=== PATIENT | female | born 1955 | race Caucasian/White ===

== ENCOUNTER 2019-03-12 20:40 | Emergency (ER) | payer MEDICARE, OTHER ==
[~2019-03-12] VITALS: Ht 167.6 cm; Wt 50.8 kg
--- NOTE | 2019-03-12 21:21 | NUR ---
PT TRANSPORTED TO RADIOLOGY FOR CT.
[2019-03-12] MEDS ORDERED: DIAZEPAM 10 MG TABLET PO ONE (21:30)
[2019-03-12] MEDS ORDERED: DIAZEPAM 5 MG TABLET ONE (21:50)
--- NOTE | 2019-03-12 22:12 | NUR ---
Patient discharged to home in stable condition. Written and verbal after care instructions given. Patient verbalizes understanding of instruction. ambulatory with a steady gait
[2019-03-12 22:13] VITALS: BP 149/73
== END 2019-03-12 22:13 | disposition home or self-care (01) ==
LOC: ER 20:40
DX: M62.830 Muscle spasm of back (principal); G89.29 Other chronic pain; M54.5 Low back pain; J43.9 Emphysema, unspecified; F17.210 Nicotine dependence, cigarettes, uncomplicated; Z91.010 Allergy to peanuts
CPT/HCPCS: 72131-TC

== ENCOUNTER 2019-07-18 13:48 | Emergency (ER) | payer MEDICARE, OTHER ==
[~2019-07-18] VITALS: Ht 167.6 cm; Wt 54.4 kg
[2019-07-18] MEDS ORDERED: FLUORESCEIN SODIUM OPHTH 1 EA STRIP ONE (14:31)
--- NOTE | 2019-07-18 14:31 | NUR ---
DR. HESS AT BEDSIDE.
[2019-07-18 15:43] VITALS: BP 152/107
--- NOTE | 2019-07-18 15:43 | NUR ---
A/OX4. NO SOB NOTED, NEEDS ATTENDED. Patient discharged to home in stable condition. Written and verbal after care instructions given. Patient verbalizes understanding of instruction.
== END 2019-07-18 15:43 | disposition home or self-care (01) ==
LOC: ER 13:49
DX: J20.9 Acute bronchitis, unspecified (principal); H10.9 Unspecified conjunctivitis; F17.210 Nicotine dependence, cigarettes, uncomplicated; M19.90 Unspecified osteoarthritis, unspecified site; G89.29 Other chronic pain; Z91.010 Allergy to peanuts
CPT/HCPCS: 71045-TC

== ENCOUNTER 2021-05-27 12:04 | Emergency (ER) | payer MEDICARE, OTHER ==
[~2021-05-27] VITALS: Ht 167.6 cm; Wt 64.4 kg
[2021-05-27 12:24] LABS: BASOPHILS # (AUTO) 0.1 K/uL (0.0-0.2); BASOPHILS % (AUTO) 1.1 % (0.0-2.0); EOSINOPHILS % (AUTO) 3.9 % (0.0-6.0); HEMATOCRIT 41 % (33-45); HEMOGLOBIN 13.5 g/dL (11.5-14.8); LYMPHOCYTES # (AUTO) 2.2 K/uL (0.8-4.8); LYMPHOCYTES % (AUTO) 25.9 % (20.0-44.0); MEAN CORPUSCULAR HGB CONC 33 g/dl (31.0-36.0); MEAN CORPUSCULAR VOLUME 92 fL (82-100); MONOCYTES # (AUTO) 0.7 K/uL (0.1-1.30); MONOCYTES % (AUTO) 8.1 % (2.0-12.0); NEUTROPHILS # (AUTO) 5.1 K/uL (1.8-8.9); PLATELET COUNT (AUTO) 346 K/uL (150-450); RED BLOOD CELL COUNT(AUTO) 4.44 MIL/uL (4.0-5.2); WHITE BLOOD COUNT (AUTO) 8.4 K/uL (4.3-11.0)
[2021-05-27] MEDS ORDERED: predniSONE 20 MG TABLET ONE (12:24)
--- NOTE | 2021-05-27 12:29 | NUR ---
patient came in to the er c/o persistent cough x 4 weeks. On room air, breathing evenly. connected to the monitor and pulse ox. Kept comfortable, will continue to monitor accordingly.
[2021-05-27] MEDS ORDERED: IPRATROPIUM NEB FS 0.5 MG/2.5 ML AMPUL.NEB NEB ONE (12:30)
[2021-05-27] MEDS ORDERED: ALBUTEROL FS 2.5 MG/3 ML VIAL.NEB CONTNEB ONE (12:30)
[2021-05-27] MEDS ORDERED: predniSONE 20 MG TABLET PO ONE (12:30)
[2021-05-27] MEDS ORDERED: ALBUTEROL FS 2.5 MG/3 ML VIAL.NEB ONE (12:31)
[2021-05-27] MEDS ORDERED: IPRATROPIUM NEB FS 0.5 MG/2.5 ML AMPUL.NEB ONE (12:31)
--- NOTE | 2021-05-27 12:35 | NUR ---
RT at bedside for treatment.
[2021-05-27 12:48] LABS: CALCIUM, SERUM 9.4 mg/dL (8.5-10.1); CARBON DIOXIDE 28 mmol/L (21-32); GLUCOSE 95 mg/dL (74-106); UREA NITROGEN, BLOOD 18 mg/dL (7-18)
[2021-05-27 12:55] LABS: CHLORIDE 104 mmol/L (98-107); SODIUM SERUM 140 mmol/L (136-145)
--- NOTE | 2021-05-27 12:55 | NUR ---
hemalatha at bedside for x-ray.
[2021-05-27] MEDS ORDERED: LEVO500T90 PO (13:16)
[2021-05-27] MEDS ORDERED: PRED50TA PO (13:16)
--- NOTE | 2021-05-27 13:30 | NUR ---
covid swab collected and sent to lab.
[2021-05-27 13:31] VITALS: BP 145/88
--- NOTE | 2021-05-27 13:32 | NUR ---
Patient discharged to home in stable condition. Written and verbal after care instructions given. Patient verbalizes understanding of instruction.IV removed. Catheter intact and site benign. Pressure and 4x4 applied to site. No bleeding noted.
== END 2021-05-27 13:31 | disposition home or self-care (01) ==
LOC: ER 12:10
DX: J43.9 Emphysema, unspecified (principal); Z20.822 Contact with and (suspected) exposure to COVID-19; G89.29 Other chronic pain; M54.50 Low back pain, unspecified; F17.210 Nicotine dependence, cigarettes, uncomplicated; Z91.010 Allergy to peanuts; H40.9 Unspecified glaucoma; M19.90 Unspecified osteoarthritis, unspecified site
CPT/HCPCS: 36415; 71045; 80048; 83880; 84484; 85025; 87426; 93005; 94640; 99285; J7512; 94762-TC; 94799-TC; C9803

== ENCOUNTER 2024-01-09 14:26 | Emergency (ER) | payer MEDICARE, OTHER ==
[~2024-01-09] VITALS: Ht 167.6 cm; Wt 54.4 kg
[~2024-01-09 14:26] MED LIST: LEVO500T90 PO; PRED50TA PO
[2024-01-09 14:35] VITALS: BP 156/81; TEMP 98.2; O2SAT 99
[2024-01-09] MEDS ORDERED: HYDR-4182 TP (14:57)
== END 2024-01-09 15:23 | disposition home or self-care (01) ==
LOC: ER 14:31
DX: R21 Rash and other nonspecific skin eruption (principal); J43.9 Emphysema, unspecified; F17.200 Nicotine dependence, unspecified, uncomplicated; Z79.899 Other long term (current) drug therapy; Z91.010 Allergy to peanuts

== ENCOUNTER → 2024-03-06 | Emergency (ER) | payer MEDICARE, OTHER ==
[~2024-03-06] VITALS: Ht 167.6 cm; Wt 54.4 kg
[~2024-03-06] MED LIST changes: +CEPH-570 PO; +LIDOCAINE 1% INJ 50 ML MDV IJ ONE; +LIDOCAINE HCL/MPF 1% 30 ML VIAL IJ ONE; +SULF1TAB48 PO
[2024-03-06 17:16] VITALS: BP 135/75; TEMP 98.4; O2SAT 99
--- NOTE | 2024-03-06 18:45 | NUR ---
NO WORKING PHONE NUMBER ON FILE.
== END | disposition left against medical advice (07) ==
LOC: ER 17:12
DX: L02.412 Cutaneous abscess of left axilla (principal); H40.9 Unspecified glaucoma; J43.9 Emphysema, unspecified; M19.90 Unspecified osteoarthritis, unspecified site; G89.29 Other chronic pain; M54.59 Other low back pain; F17.210 Nicotine dependence, cigarettes, uncomplicated; Z91.010 Allergy to peanuts
CPT/HCPCS: 99283; A6403; A6407; J3490

== ENCOUNTER 2024-03-29 17:43 | Emergency (ER) | payer MEDICARE, OTHER ==
[~2024-03-29] VITALS: Ht 167.6 cm; Wt 55.8 kg
[~2024-03-29 17:43] MED LIST changes: -LIDOCAINE 1% INJ 50 ML MDV IJ ONE; -LIDOCAINE HCL/MPF 1% 30 ML VIAL IJ ONE
[2024-03-29 18:25] VITALS: TEMP 98.7
[2024-03-29] MEDS ORDERED: CYCLOBENZAPRINE 10 MG TABLET ONE (20:10)
[2024-03-29] MEDS ORDERED: KETOROLAC TROMETHAMINE 15 MG/ML VIAL ONE (20:10)
[2024-03-29] MEDS: KETOROLAC TROMETHAMINE 15 MG/ML VIAL IM ONE (20:15)
[2024-03-29] MEDS: CYCLOBENZAPRINE 10 MG TABLET PO ONE (20:16)
[2024-03-29 20:27] VITALS: BP 140/83; O2SAT 98
[2024-03-29] MEDS ORDERED: CEPH500T PO (20:41)
[2024-03-29] MEDS ORDERED: CYCL5TAB PO (20:41)
== END 2024-03-29 20:46 | disposition home or self-care (01) ==
LOC: ER 18:31
DX: G89.29 Other chronic pain (principal); M54.59 Other low back pain; H40.9 Unspecified glaucoma; J43.9 Emphysema, unspecified; M19.90 Unspecified osteoarthritis, unspecified site; F17.210 Nicotine dependence, cigarettes, uncomplicated; Z87.39 Personal history of other diseases of the musculoskeletal system and connective tissue; Z91.010 Allergy to peanuts
CPT/HCPCS: 99283; 96372; J1885

== ENCOUNTER 2024-05-22 11:55 | Emergency (ER) | payer MEDICARE, OTHER ==
[~2024-05-22] VITALS: Ht 167.6 cm; Wt 56.7 kg
[~2024-05-22 11:55] MED LIST changes: +CEPH500T PO; +CYCL5TAB PO
[2024-05-22 12:01] VITALS: BP 161/102; TEMP 97.5; O2SAT 95
[2024-05-22] MEDS ORDERED: MUPI15CR TP (12:38)
== END 2024-05-22 13:33 | disposition home or self-care (01) ==
LOC: ER 12:01
DX: L73.9 Follicular disorder, unspecified (principal); J43.9 Emphysema, unspecified; H40.9 Unspecified glaucoma; M19.90 Unspecified osteoarthritis, unspecified site; F17.210 Nicotine dependence, cigarettes, uncomplicated; Z79.52 Long term (current) use of systemic steroids

== ENCOUNTER → 2025-03-27 | Emergency (ER) | payer MEDICARE, OTHER ==
[~2025-03-27] VITALS: Ht 170.2 cm; Wt 52.2 kg
[~2025-03-27] MED LIST changes: +KETOROLAC TROMETHAMINE INJ 30 MG/ML VIAL ONE; +MUPI15CR TP
[2025-03-27 14:11] VITALS: TEMP 97.9
[2025-03-27] MEDS: KETOROLAC TROMETHAMINE INJ 30 MG/ML VIAL IM ONE (14:36)
[2025-03-27 16:12] VITALS: BP 135/85; O2SAT 99
== END | disposition left against medical advice (07) ==
LOC: ER 14:30
DX: S09.8XXA Other specified injuries of head, initial encounter (principal); F17.200 Nicotine dependence, unspecified, uncomplicated; G89.29 Other chronic pain; H40.9 Unspecified glaucoma; M19.90 Unspecified osteoarthritis, unspecified site; Z91.010 Allergy to peanuts; Z79.52 Long term (current) use of systemic steroids; Z87.09 Personal history of other diseases of the respiratory system; W18.39XA Other fall on same level, initial encounter; Y93.89 Activity, other specified; Y92.89 Other specified places as the place of occurrence of the external cause; Y99.8 Other external cause status
CPT/HCPCS: 99285; 72125; 96372; 70450; J1885

== ENCOUNTER 2025-05-18 09:36 | Inpatient (IN) | payer MEDICARE, OTHER ==
[~2025-05-18] VITALS: Ht 167.6 cm; Wt 52.2 kg
[~2025-05-18 09:36] MED LIST changes: -KETOROLAC TROMETHAMINE INJ 30 MG/ML VIAL ONE
[2025-05-18] MEDS ORDERED: Magnesium 1GM/D5W 100ML PREMIX 100 ML IV ONE (09:51)
[2025-05-18] MEDS ORDERED: CEFTRIAXONE 1GM BAG (ER ONLY) 50 ML IV ONE (09:51)
[2025-05-18] MEDS: CEFTRIAXONE 1GM BAG (ER ONLY) 50 ML IV ONE (10:00)
[2025-05-18] MEDS: ALBUTEROL FS 2.5 MG/3 ML VIAL.NEB NEB ONE (10:05)
[2025-05-18] MEDS: IPRATROPIUM NEB FS 0.5 MG/2.5 ML AMPUL.NEB NEB ONE (10:05)
[2025-05-18] MEDS ORDERED: ALBUTEROL FS 2.5 MG/3 ML VIAL.NEB ONE (10:05)
[2025-05-18 10:10] VITALS: O2SAT 93
[2025-05-18 10:17] LABS: PLATELET COUNT (AUTO) 336 K/uL (150-450); RED BLOOD CELL COUNT(AUTO) 4.59 MIL/uL (4.0-5.2); RED CELL DISTRIBUTION WIDTH 12.8 % (11.5-15.0); WHITE BLOOD COUNT (AUTO) 10.5 K/uL (4.3-11.0)
[2025-05-18 10:24] LABS: CALCIUM, SERUM 9.1 mg/dL (8.5-10.1); CREATININE 0.8 mg/dL (0.6-1.3); SODIUM SERUM 143.0 mmol/L (136-145); UREA NITROGEN, BLOOD 26.0 mg/dL (7-18)
[2025-05-18] MEDS: Magnesium 1GM/D5W 100ML PREMIX 200 ML IV ONE (10:30)
[2025-05-18] MEDS: AZITHROMYCIN 500 MG in IV D5W 250 ML IV ONE (10:30)
[2025-05-18] MEDS ORDERED: POTASSIUM CHLORIDE 20 MEQ TAB.PRT.SR PO ONE (10:59)
[2025-05-18] MEDS ORDERED: POTASSIUM CL. PREMIX PERIPHER. 50 ML ONE (10:59)
[2025-05-18 11:00] VITALS: BP 137/70; TEMP 98.2; O2SAT 94
[2025-05-18] MEDS ORDERED: ONDANSETRON HCL/PF 4 MG/2 ML VIAL IVP PRN (11:00)
[2025-05-18] MEDS ORDERED: MAGNESIUM HYDROXIDE 30 ML UDC PO PRN (11:00)
[2025-05-18] MEDS ORDERED: ALBUTEROL FS 2.5 MG/3 ML VIAL.NEB NEB PRN (11:00)
[2025-05-18] MEDS ORDERED: MAG HYDROX/AL HYDROX/SIMETH 30 ML UDC PO PRN (11:00)
[2025-05-18] MEDS ORDERED: IPRATROPIUM NEB FS 0.5 MG/2.5 ML AMPUL.NEB NEB PRN (11:00)
[2025-05-18] MEDS: Magnesium 1GM/D5W 100ML PREMIX 100 ML IV SCH (11:00)
[2025-05-18] MEDS: POTASSIUM CHLORIDE 20 MEQ TAB.PRT.SR PO ONE (11:02)
[2025-05-18 11:10] VITALS: O2SAT 96
[2025-05-18] MEDS: IV NS 0.9% 1,000 ML IV PRN (11:47)
[2025-05-18] MEDS: POTASSIUM CL. PREMIX PERIPHER. 50 ML IV SCH (11:48)
[2025-05-18] MEDS: ENOXAPARIN SODIUM 40 MG/0.4 ML DISP.SYRIN SQ SCH (13:00)
[2025-05-18 16:00] VITALS: BP 139/70; TEMP 98.4; O2SAT 94
[2025-05-18 20:00] VITALS: BP 154/79; TEMP 97.3; O2SAT 96
[2025-05-19] VITALS (15 sets, daily range): BP systolic 96–178; BP diastolic 60–85; TEMP 97.1–98.2; O2SAT 93–98
[2025-05-19] MEDS: ALBUTEROL FS 2.5 MG/3 ML VIAL.NEB NEB SCH (01:29)
[2025-05-19] MEDS: IPRATROPIUM NEB FS 0.5 MG/2.5 ML AMPUL.NEB NEB SCH (01:29)
[2025-05-19 07:06] LABS: PLATELET COUNT (AUTO) 328 K/uL (150-450); RED BLOOD CELL COUNT(AUTO) 4.10 MIL/uL (4.0-5.2); RED CELL DISTRIBUTION WIDTH 12.7 % (11.5-15.0); WHITE BLOOD COUNT (AUTO) 16.8 K/uL (4.3-11.0)
[2025-05-19 07:45] LABS: CALCIUM, SERUM 9.1 mg/dL (8.5-10.1); CREATININE 0.7 mg/dL (0.6-1.3); PHOSPHORUS 2.3 mg/dL (2.5-4.9); SODIUM SERUM 141.0 mmol/L (136-145); UREA NITROGEN, BLOOD 27.0 mg/dL (7-18)
[2025-05-19 08:28] LABS: ABG BASE EXCESS 1.0 mmol/L (-2.0-3.0); ABG OXYGEN SATURATION 97.5 % (94.0-98.0); ABG PCO2 33.3 mmHg (32.0-45.0); ABG PH 7.476 (7.350-7.450); ABG PO2 94.1 mmHg (83.0-108.0); ABG TOTAL HEMOGLOBIN 12.6 G/dL (12.0-16.0); FRACTIONATED INSPIRED OXYGEN 21.0 %; SITE, ABG LEFT RADIAL
[2025-05-19] MEDS: PANTOPRAZOLE 40 MG TABLET.DR PO SCH (10:20)
[2025-05-19] MEDS: CEFTRIAXONE 1 G in IV D5W 50 ML IV SCH (10:23)
[2025-05-19] MEDS: AZITHROMYCIN 500 MG in IV D5W 250 ML IV SCH (11:14)
[2025-05-19] MEDS: ACETAMINOPHEN 325 MG TABLET PO PRN (15:47)
[2025-05-19] MEDS ORDERED: IBUPROFEN 200 MG TABLET PO PRN (16:30)
[2025-05-19] MEDS: K PHOS NEUTRAL 250 MG TABLET PO ONE (18:07)
[2025-05-20 01:10] VITALS: O2SAT 97
[2025-05-20 01:14] VITALS: O2SAT 97
[2025-05-20 01:23] VITALS: O2SAT 98
[2025-05-20] MEDS: IBUPROFEN 400 MG TABLET PO PRN (06:24)
[2025-05-20 08:00] VITALS: BP 177/92; TEMP 97.5; O2SAT 98
[2025-05-20 08:08] LABS: CALCIUM, SERUM 9.1 mg/dL (8.5-10.1); CREATININE 0.7 mg/dL (0.6-1.3); PHOSPHORUS 3.6 mg/dL (2.5-4.9); SODIUM SERUM 143.0 mmol/L (136-145); UREA NITROGEN, BLOOD 25.0 mg/dL (7-18)
[2025-05-20 08:14] VITALS: O2SAT 97
[2025-05-20 08:29] VITALS: O2SAT 98
[2025-05-20] MEDS: POTASSIUM CHLORIDE 20 MEQ TAB.PRT.SR PO SCH (09:22)
[2025-05-20] MEDS ORDERED: PRED20TA PO (10:47)
[2025-05-20] MEDS ORDERED: ALBU8.5H8 INH (10:47)
[2025-05-20] MEDS ORDERED: FLUT1BLS IH (10:47)
== END 2025-05-20 12:37 | disposition home or self-care (01) | DRG 190 ==
LOC: ER 09:40 → MED 10:59 → TELE 11:50 → MED 05-19 14:11
PROVIDERS: ADMIT Nurse Practitioner Family; ATTEND Nurse Practitioner Acute Care
DX: J44.1 Chronic obstructive pulmonary disease with (acute) exacerbation (principal); J96.01 Acute respiratory failure with hypoxia; E86.0 Dehydration; E87.6 Hypokalemia; F17.210 Nicotine dependence, cigarettes, uncomplicated; Z91.010 Allergy to peanuts; Z91.199 Patient's noncompliance with other medical treatment and regimen due to unspecified reason; Z87.01 Personal history of pneumonia (recurrent); Z71.6 Tobacco abuse counseling
CPT/HCPCS: 36415; 36600; 71045-TC; 71250-TC; 80048-TC; 82803-TC; 83735-TC; 84100-TC; 85025-TC; 87040-TC; 93970-TC; 94760-TC; 97116-TC; 97530-TC; A4223; G0378; J0456; J0696; J1650; J2919; J3475; J3480; J7030; J7050; J7060